=== PATIENT | female | born 1985 | race Caucasian/White ===

== ENCOUNTER 2017-08-01 14:04 | Inpatient (IN) | payer BC ==
[2017-08-01] MEDS ORDERED: CARBOPROST TROMETHAMINE 250 MCG/ML 1 ML AMP IM PRN (14:19)
[2017-08-01] MEDS ORDERED: OXYTOCIN 10 UNIT/ML 1 ML VIAL IM PRN (14:19)
[2017-08-01] MEDS ORDERED: TERBUTALINE 1 MG/ML VIAL SQ PRN (14:19)
[2017-08-01] MEDS ORDERED: LIDOCAINE 1% (PF) 10 MG/ML (30 ML SDV) SQ PRN (14:19)
[2017-08-01] MEDS ORDERED: METHYLERGONOVINE 0.2 MG/ML 1 ML AMP IM PRN (14:19)
[2017-08-01] MEDS ORDERED: LACTATED RINGERS 1,000 ML IV SCH (14:30)
[2017-08-01 14:44] LABS: Basophils % (A) 0 %; Eosinophils # (A) 0.3 k/uL (0-0.7); Eosinophils % (A) 3 %; HCT 43.3 % (34.0-46.0); HGB 14.8 gm/dL (11.4-16.0); Lymphocytes # (A) 2.5 k/uL (1.0-4.8); Lymphocytes % (A) 22 %; MCH 31.5 pg (25.0-35.0); MCHC 34.2 g/dL (31.0-37.0); MCV 91.9 fL (80.0-100.0); Mean Platelet Volume 8.6; Monocytes # (A) 0.4 k/uL (0-1.0); Monocytes % (A) 3 %; Neutrophils # (A) 7.7 k/uL (1.3-7.7); Neutrophils % (A) 70 %; Platelet Count 245 k/uL (150-450); RBC 4.71 m/uL (3.80-5.40); RDW 12.9 % (11.5-15.5); WBC 11.1 k/uL (3.8-10.6)
[2017-08-01] MEDS ORDERED: WITCH HAZEL 1 EACH MED..PAD TOPICAL PRN (15:19)
[2017-08-01] MEDS ORDERED: ZOLPIDEM 5 MG TAB PO PRN (15:19)
[2017-08-01] MEDS ORDERED: BISACODYL 10 MG SUPP RECTAL PRN (15:19)
[2017-08-01] MEDS ORDERED: diphenhydrAMINE 25 MG CAP PO PRN (15:19)
[2017-08-01] MEDS ORDERED: diphenhydrAMINE 50 MG/ML 1 ML VIAL IVP PRN (15:19)
[2017-08-01] MEDS ORDERED: BENZOCAINE/MENTHOL SPRAY 1 GM/SPRAY AEROSOL TOPICAL PRN (15:19)
[2017-08-01] MEDS ORDERED: SIMETHICONE 80 MG CHEWABLE PO PRN (15:19)
[2017-08-01] MEDS ORDERED: LANOLIN CREAM 5 GM TUBE TOPICAL PRN (15:19)
[2017-08-01] MEDS ORDERED: HYDROCORTISONE 2.5% RECTAL CREAM 30 GM TUBE RECTAL PRN (15:19)
[2017-08-01] MEDS ORDERED: ACETAMINOPHEN TAB 325 MG TAB PO PRN (15:19)
[2017-08-01] MEDS ORDERED: OXYTOCIN 20 UNITS/1000 ML NS 1,000 ML IV SCH (15:30)
[2017-08-01] MEDS: IBUPROFEN 600 MG TAB PO PRN (15:52)
[2017-08-01 16:11] VITALS: BMI 29.2
--- NOTE | 2017-08-01 16:49 | P.HPOB ---
History of Present Illness H&P Date: 08/01/17 Chief Complaint: Contractions This patient is a pleasant 31-year-old 2 para 1 female estimated date of confinement 08/08/2017 estimated gestational age 39 weeks who presents to labor and delivery with complaint of contractions since 6:00 this morning. Patient is found to be 6 cm dilated on admission in active labor. care has been uncomplicated. Review of Systems Gastrointestinal: Reports heartburn Genitourinary: Reports Menstruation: Reports amenorrhea Past Medical History Past Medical History: No Reported History History of Any Multi-Drug Resistant Organisms: None Reported Past Surgical History: No Surgical Hx Reported Past Anesthesia/Blood Transfusion Reactions: No Reported Reaction Past Psychological History: No Psychological Hx Reported Smoking Status: Never smoker Past Alcohol Use History: None Reported Past Drug Use History: None Reported - Past Family History Father Additional Family Medical History / Comment(s): cardiac disease Medications and Allergies Home Medications Medication Instructions Recorded Confirmed Type Pnv,Calcium 72/Iron/Folic Acid 1 tab PO DAILY 04/12/15 08/01/17 History [Pnv Plus Multivit Tab] Cetirizine HCl [Zyrtec] 5 mg PO DAILY 08/01/17 08/01/17 History Allergies Allergy/AdvReac Type Severity Reaction Status Date / Time egg AdvReac Nausea & Verified 08/01/17 14:16 Vomiting gluten AdvReac Nausea & Verified 08/01/17 14:16 Vomiting milk AdvReac Nausea & Verified 08/01/17 14:16 Vomiting Exam - Vital Signs Vital signs: Vital Signs Temp Pulse Resp BP 08/01/17 16:23 78 18 122/63 08/01/17 16:08 96.9 F L 74 18 120/69 08/01/17 16:04 98.1 F 93 18 135/72 08/01/17 15:53 81 18 120/63 08/01/17 15:38 74 18 118/61 08/01/17 15:23 96.7 F L 72 18 115/58 Intake and Output 08/01/17 08/01/17 08/01/17 06:59 14:59 22:59 Output Total 100 Balance -100 Output: Estimated Blood Loss 100 Other: Weight 72.575 kg 72.575 kg - OBG Physical Exam Abdomen: bowel sounds normal, no diffuse tenderness, no bruit present, no guarding noted, no hepatomegaly, no splenomegaly, no mass Vulva: both: normal Vagina: normal moisture, no discharge Cervix: no lesion (Cervix is 8 cm dilated with a bulging bag.), no discharge Uterus: enlarged (Fundal height in the office was 38 cm.) Results blood work shows she is A positive, rubella immune, RPR nonreactive, HIV is nonreactive, hepatitis B is negative, group B strep was negative, Glucola was normal, ultrasounds have been normal. Result Diagrams: 08/01/17 02:35 Abnormal Lab Results - Last 24 Hours (Table) 08/01/17 Range/Units 02:35 WBC 11.1 H (3.8-10.6) k/uL Assessment and Plan Assessment: This is a pleasant 31-year-old 2 para 1 female 39 weeks gestation in active labor. Plan is anticipate normal vaginal delivery. (1) Third trimester Current Visit: Yes Status: Acute Code(s): Z34.93 - ENCNTR FOR SUPRVSN OF NORMAL PREG, UNSP, THIRD TRIMESTER SNOMED Code(s): 72718612 (2) Normal labor Current Visit: Yes Status: Acute Code(s): O80 - ENCOUNTER FOR FULL-TERM UNCOMPLICATED DELIVERY; Z37.9 - OUTCOME OF DELIVERY, UNSPECIFIED SNOMED Code(s ): 85348055
--- NOTE | 2017-08-01 16:51 | P.PROBDLV ---
Vaginal Delivery Note - . Vaginal Delivery Note: Normal spontaneous vaginal delivery viable female infant Apgars are 9 and 9 delivery time is 1504 hrs. Please see dictated H&P for intimate details of this patient's admission. In brief summary this is a pleasant 31-year-old 2 para 1 female 39 weeks gestation admitted to labor and delivery in active labor. Patient is 8 cm dilated and has artificial rupture membranes for clear fluid. Patient quickly thereafter progresses to complete and pushes for approximately for 5 pushes pushes the head to the perineum. Posterior perineum was supported and we have controlled delivery of the infant's head over the perineum. Mouth and nares are bulb suctioned and there is no evidence of a nuchal cord. She then spontaneously delivers the rest of this infant's body. This is a vigorous viable female Apgars are 9 and 9 delivery time is 1504 hrs. After delivery of the the umbilical cord is doubly clamped and cut appears to be trivascular. Placenta spontaneously delivered intact. Estimated blood loss is 100 mL. There is a second-degree midline laceration which is repaired with 3 -0 Vicryl in the usual fashion and excellent reapproximation is noted. There are no complications. All counts are correct 3. Infant and mother are stable delivery room.
[2017-08-01] MEDS: SENNOSIDES-DOCUSATE SODIUM 1 EACH TAB PO SCH (20:32)
[2017-08-02] MEDS: IBUPROFEN 600 MG TAB PO PRN ×3 (03:29→15:57)
--- NOTE | 2017-08-02 06:02 | P.PNOBGVD ---
Subjective - Subjective Patient reports: Reports appetite normal, Reports voiding normally, Reports pain well controlled, Reports ambulating normally : doing well Objective - Latest Vital Signs Latest vital signs: Vital Signs Temp Pulse Resp BP 08/01/17 23:20 98.5 F 64 16 105/68 08/01/17 20:00 98.8 F 79 16 117/77 08/01/17 17:23 96.8 F L 78 18 112/61 08/01/17 16:47 97.3 F L 68 18 123/68 08/01/17 16:23 78 18 122/63 08/01/17 16:08 96.9 F L 74 18 120/69 08/01/17 16:04 98.1 F 93 18 135/72 08/01/17 15:53 81 18 120/63 08/01/17 15:38 74 18 118/61 08/01/17 15:23 96.7 F L 72 18 115/58 Intake and Output 08/01/17 08/01/17 08/02/17 14:59 22:59 06:59 Intake Total 700 Output Total 100 Balance 600 Intake: IV 700 Invasive Line 1 700 Output: Estimated Blood Loss 100 Other: Weight 72.575 kg 72.575 kg - Exam Lungs: bilateral: normal Chest: Normal S1, Normal S2 Extremities: Present: normal Abdomen: Present: normal appearance, soft Uterus: Present: normal, firm - Labs Labs: Abnormal Lab Results - Last 24 Hours (Table) 08/01/17 Range/Units 02:35 WBC 11.1 H (3.8-10.6) k/uL Assessment and Plan Assessment: Post day #1. Patient is resting without complaints and wishes to go home. Vital signs are stable and she is afebrile. Uterus is firm nontender she 's having normal lochia. My impression this is a normal course. Plan is to continue routine care discharge home later today (1) Third trimester Current Visit: Yes Status: Acute Code(s): Z34.93 - ENCNTR FOR SUPRVSN OF NORMAL PREG, UNSP, THIRD TRIMESTER SNOMED Code(s): 82803463 (2) Normal labor Current Visit: Yes Status: Acute Code(s): O80 - ENCOUNTER FOR FULL-TERM UNCOMPLICATED DELIVERY; Z37.9 - OUTCOME OF DELIVERY, UNSPECIFIED SNOMED Code(s ): 36750336
--- NOTE | 2017-08-02 06:03 | P.DS ---
Providers Date of admission: 08/01/17 14:19 Expected date of discharge: 08/02/17 Attending physician: Devin Dolan Primary care physician: Stated None - Discharge Diagnosis(es) (1) Third trimester Current Visit: Yes Status: Acute (2) Normal labor Current Visit: Yes Status: Acute Hospital Course: Please see dictated H&P for intimate details of this patient's admission. Brief summary this pleasant 31-year-old 2 para 1 female 39 weeks gestation admitted to labor and delivery in active labor. Patient quickly goes on to have a vaginal delivery viable female infant. Please see dictated delivery note. day #1 patient wishes to go home felt to be stable for discharge home follow up with me in 6 weeks. Procedures: Normal spontaneous vaginal delivery. Patient Condition at Discharge: Good Plan - Discharge Summary New Discharge Prescriptions: New Ibuprofen [Motrin] 600 mg PO Q6HR PRN #40 tab PRN Reason: Mild Pain Or Fever >= 100.5 No Action Pnv,Calcium 72/Iron/Folic Acid [Pnv Plus Multivit Tab] 1 tab PO DAILY Cetirizine HCl [Zyrtec] 5 mg PO DAILY Discharge Medication List Pnv,Calcium 72/Iron/Folic Acid [Pnv Plus Multivit Tab] 1 tab PO DAILY 04/12/15 [History] Cetirizine HCl [Zyrtec] 5 mg PO DAILY 08/01/17 [History] Ibuprofen [Motrin] 600 mg PO Q6HR PRN #40 tab 08/02/17 [Rx] Follow up Appointment(s)/Referral(s): Devin Dolan MD [STAFF PHYSICIAN] - 6 Weeks Patient Instructions/Handouts: Vaginal Delivery (DC) Activity/Diet/Wound Care/Special Instructions: No intercourse or anything per vagina for 6 weeks. Please call if any fever, chills, excessive vaginal bleeding, and/or abdominal pain. Discharge Disposition: HOME SELF-CARE
[2017-08-02] MEDS: SENNOSIDES-DOCUSATE SODIUM 1 EACH TAB PO SCH (11:06)
[2017-08-02 11:30] VITALS: RESP 18
[2017-08-02 16:49] VITALS: BP 132/82; PULSE 76; TEMP 98.3
== END 2017-08-02 16:10 | disposition home or self-care (01) | DRG 775 ==
LOC: FBPOP 14:04 → 4FBP 14:19
PROVIDERS: ADMIT Obstetrics & Gynecology; ATTEND Obstetrics & Gynecology
PROC: 10E0XZZ Delivery of Products of Conception, External Approach (ICD-10-PCS; principal; 2017-08-01)
PROC: 0KQM0ZZ Repair Perineum Muscle, Open Approach (ICD-10-PCS; 2017-08-01)
DX: O99.62 Diseases of the digestive system complicating childbirth (principal); O70.1 Second degree perineal laceration during delivery; R12 Heartburn; Z37.0 Single live birth; Z3A.39 39 weeks gestation of pregnancy; Z91.012 Allergy to eggs; Z91.011 Allergy to milk products; Z91.018 Allergy to other foods
CPT/HCPCS: 59025; 85025; 88307; 99213

== ENCOUNTER → 2021-03-23 | Outpatient (CLI) | payer BC ==
--- NOTE | 2021-03-23 08:06 | US ---
EXAMINATION TYPE: US abdomen complete DATE OF EXAM: 03/23/2021 COMPARISON: NONE CLINICAL HISTORY: R94.5 Abnormal LFT. Abnormal labs. No pain. No prior surgeries. EXAM MEASUREMENTS: Liver Length: 14.4 cm Gallbladder Wall: 0.2 cm CBD: 0.4 cm Spleen: 9.9 cm Right Kidney: 9.8 x 4.8 x 3.9 cm Left Kidney: 10.0 x 4.7 x 5.2 cm Pancreas: wnl Liver: wnl Gallbladder: wnl Evidence for sonographic Blue's sign: neg CBD: wnl Spleen: wnl Right Kidney: No hydronephrosis or masses seen Left Kidney: No hydronephrosis or masses seen Upper IVC: wnl Abd Aorta: No AAA visualized IMPRESSION: 1. Normal abdomen ultrasound is visualized.
== END | disposition home or self-care (01) ==
LOC: RADUSWWP 07:29
PROVIDERS: ATTEND Family Medicine
DX: R94.5 Abnormal results of liver function studies (principal)
CPT/HCPCS: 76700

== ENCOUNTER → 2022-11-17 | Outpatient (CLI) | payer BC ==
--- NOTE | 2022-11-18 08:33 | MM ---
Reason for Exam: Screening (asymptomatic). Patient History: Menarche at age 13. First Full-Term at age 30. Late child-bearing (after 30). Premenopausal. Hormonal Contraceptives for 18 years from age 18 until age 36. Risk Values: Lisa 5 year model risk: 0.5%. NCI Lifetime model risk: 13.8%. Tissue Density: The breast tissue is heterogeneously dense. This may lower the sensitivity of mammography. Findings: Analyzed By CAD. There is no suspicious group of microcalcifications or suspicious mass in either breast. Overall Assessment: Negative, BI-RAD 1 Management: Screening Mammogram of both breasts in 1 year. A clinical breast exam by your physician is recommended on an annual basis and results should be correlated with mammographic findings. Note on Lisa scores and lifetime risk: 1. A Lisa score greater than 3% is considered moderate risk. If this is the case, consider specialist referral to assess eligibility for a risk reducing agent. If overall lifetime risk for the development of breast cancer is 20% or higher, the patient may qualify for future screening with alternating mammogram and breast MRI. Electronically signed and approved by: Estevan Potter D.O.
== END | disposition home or self-care (01) ==
LOC: RADMAMWWP 15:11
PROVIDERS: ATTEND Obstetrics & Gynecology
DX: Z12.31 Encounter for screening mammogram for malignant neoplasm of breast (principal)
CPT/HCPCS: 77067